=== PATIENT | male | born 1995 | race Caucasian/White ===

== ENCOUNTER 2021-12-22 01:47 | Emergency (ER) | payer SELFPAY ==
[~2021-12-22] VITALS: Ht 170.2 cm; Wt 63.5 kg
[2021-12-22 02:00] VITALS: BP_SYST 133
--- NOTE | 2021-12-22 02:00 | NUR ---
Patient to ER bed SANDOVAL to gown for evaluation. Side rails up.
--- NOTE | 2021-12-22 02:46 | NUR ---
ER at bedside examining patient.
--- NOTE | 2021-12-22 03:07 | NUR ---
Pt taken to radiology by radar scientist accompanied by .
--- NOTE | 2021-12-22 03:26 | NUR ---
Patient given written and verbal discharge instructions and verbalizes understanding. ER MD discussed with patient the results and treatment provided. Patient in stable condition. ID arm band removed. no Rx of given. Patient educated on pain management and to follow up with PMD. Pain Scale 0/10]. Opportunity for questions provided and answered. Medication side effect fact sheet provided.
[2021-12-22 03:28] VITALS: BP_SYST 129
== END 2021-12-22 03:28 ==
LOC: SED 01:47
DX: S60.221A Contusion of right hand, initial encounter (principal); W22.01XA Walked into wall, initial encounter; Y93.89 Activity, other specified; Y92.89 Other specified places as the place of occurrence of the external cause; Y99.8 Other external cause status
CPT/HCPCS: 99283